=== PATIENT | female | born 1995 | race Caucasian/White ===

== ENCOUNTER 2021-09-17 13:17 | Emergency (ER) | payer OTHER ==
[~2021-09-17] VITALS: Ht 167.6 cm; Wt 95.4 kg
[2021-09-17 13:54] VITALS: BP 116/74
[2021-09-17] MEDS ORDERED: PRED-220 PO (14:17)
[2021-09-17] MEDS ORDERED: HYDR-2759 PO (14:17)
[2021-09-17] MEDS ORDERED: CYCL10TA19 PO (14:17)
--- NOTE | 2021-09-17 14:19 | PHYS DOC ---
Past History Past Surgical History: Cholecystectomy Additional Past Surgical Histo: LEFT FOOT Alcohol Use: None General Adult EDM: Chief Complaint: BACK PAIN - NO INJURY HPI: HPI: 26-year-old female presents with left-sided low back pain. The patient has had intermittent problems with her back for several years. She has never had a complete work-up to know what the source of it is. She has pain that radiates down the back of her left leg to past the knee. The pain comes and goes in a shooting fashion. She has a constant dull aching pain of moderate intensity in the lower lumbar. Patient has had the symptoms for 2 days. She has no idea what she did to cause at this time. Usually it comes from picking up heavier objects. This time she just woke up with the pain and has gotten worse. She usually gets steroids and a short course of pain medicine to calm it down. She denies any new injuries or trauma. Review of Systems: Review of Systems: Constitutional: Denies fever or chills Eyes: Denies change in visual acuity HENT: Denies nasal congestion or sore throat Respiratory: Denies cough or shortness of breath Cardiovascular: Denies chest pain or edema GI: Denies abdominal pain, nausea, vomiting, bloody stools or diarrhea : Denies dysuria Musculoskeletal: Left low back pain with radiculopathy down the left leg Integument: Denies rash Neurologic: Denies headache, focal weakness or sensory changes Endocrine: Denies polyuria or polydipsia Lymphatic: Denies swollen glands Psychiatric: Denies depression or anxiety Allergies: Allergies: Allergies Coded Allergies Type Severity Reaction Last Updated Verified Penicillins Allergy Unknown 09/17/21 Yes naproxen Allergy Unknown 09/17/21 Yes Physical Exam: PE: Constitutional: Well developed, well nourished, obese, no acute distress, non-toxic appearance. [] HENT: Normocephalic, atraumatic, bilateral external ears normal, oropharynx moist, no oral exudates, nose normal. [] Eyes: PERRLA, EOMI, conjunctiva normal, no discharge. [] Neck: Normal range of motion, no tenderness, supple, no stridor. [] Cardiovascular:Heart rate regular rhythm, no murmur [] Lungs & Thorax: Bilateral breath sounds clear to auscultation [] Abdomen: Bowel sounds normal, soft, no tenderness, no masses, no pulsatile masses. [] Skin: Warm, dry, no erythema, no rash. [] Back: Left lumbar paraspinal muscle spasm, tenderness to palpation. [] Extremities: No tenderness, no cyanosis, no clubbing, ROM intact, no edema. [] Neurologic: Alert and oriented X 3, normal motor function, normal sensory function, no focal deficits noted. [] Psychologic: Affect tearful, judgement normal, mood normal. [] Current Patient Data: Vital Signs: Vital Signs Date Time Temp Pulse Resp B/P (MAP) Pulse Ox O2 Delivery O2 Flow Rate FiO2 09/17/21 13:54 98.4 74 20 116/74 (88) 98 Room Air EKG: EKG: [] Radiology/Procedures: Radiology/Procedures: [] Heart Score: C/O Chest Pain: N/A Risk Factors: Risk Factors: DM, Current or recent (<one month) smoker, HTN, HLP, family history of CAD, obesity. Risk Scores: Score 0 - 3: 2.5% MACE over next 6 weeks - Discharge Home Score 4 - 6: 20.3% MACE over next 6 weeks - Admit for Clinical Observation Score 7 - 10: 72.7% MACE over next 6 weeks - Early Invasive Strategies Course & Med Decision Making: Course & Med Decision Making Pertinent Labs and Imaging studies reviewed. (See chart for details) Patient appears to be having exacerbation of her low back pain. I checked EKG X database and she has not had narcotic pain medication since 2019. I have a dvised that she may need to have further evaluation including MRI to get to the bottom of her problem. She understands will follow up with her primary physician. I will treat her with [place] 5/325, prednisone, and Flexeril. She is stable for discharge at this time. [] Dragon Disclaimer: Pierce Disclaimer: This electronic medical record was generated, in whole or in part, using a voice recognition dictation system. Departure Departure: Impression: Primary Impression: Lumbar back pain with radiculopathy affecting left lower extremity Disposition: HOME / SELF CARE / HOMELESS Condition: STABLE Referrals: PCP,MARY (PCP) Patient Instructions: Low Back Strain with [facility] Scripts Prednisone (PREDNISONE) 10 Mg Tablet 60 MG PO DAILY for back pain for 5 Days, #30 TAB Prov: BAKARI THAPA DO 09/17/21 Hydrocodone/Acetaminophen (Hydrocodone-Acetamin 5-325 mg) 1 Each Tablet 1 EACH PO Q4-6HRS PRN for PAIN, #10 TAB Prov: BAKARI THAPA DO 09/17/21 Cyclobenzaprine Hcl (CYCLOBENZAPRINE HCL) 10 Mg Tablet 1 TAB PO TID PRN for MUSCLE SPASMS, #30 TAB Prov: BAKARI THAPA DO 09/17/21 BAKARI THAPA DO Sep 17, 2021 14:19
== END 2021-09-17 14:30 | disposition home or self-care (01) ==
LOC: ER 13:17
DX: M54.16 Radiculopathy, lumbar region (principal); Z90.49 Acquired absence of other specified parts of digestive tract; Z88.0 Allergy status to penicillin; Z88.8 Allergy status to other drugs, medicaments and biological substances
CPT/HCPCS: 99281